=== PATIENT | male | born 1990 | race Caucasian/White ===

== ENCOUNTER 2019-12-17 22:46 | Emergency (ER) | payer SELFPAY ==
[~2019-12-17] VITALS: Ht 177.8 cm; Wt 79.5 kg
[2019-12-17 23:00] VITALS: BP 134/68; Ht 177.8 cm; Wt 79.5 kg
[2019-12-17] MEDS ORDERED: MUCINEX DM ER1 EAC1 PO (23:31)
[2019-12-17] MEDS ORDERED: VOLTAREN75 MG PO (23:31)
[2019-12-17] MEDS ORDERED: TAMIFLU75 MG PO (23:31)
[2019-12-17] MEDS ORDERED: CIPRO500 MG PO (23:44)
== END 2019-12-18 00:35 | disposition home or self-care (01) ==
LOC: D.ER 22:46
DX: J11.1 Influenza due to unidentified influenza virus with other respiratory manifestations (principal); R50.9 Fever, unspecified; R52 Pain, unspecified; Z72.0 Tobacco use